=== PATIENT | male | born 1960 | race Caucasian/White ===

== ENCOUNTER 2021-04-29 13:58 | Emergency (ER) | payer MEDICAID ==
[~2021-04-29] VITALS: Ht 180.3 cm; Wt 97.0 kg
[2021-04-29 15:00] VITALS: BP 139/89
[2021-04-29] MEDS ORDERED: KETOROLAC 30MG/ML VIAL IM ONE (15:00)
[2021-04-29 15:45] LABS: CHLORIDE 103 mEq/L (98-107)
[2021-04-29 16:04] LABS: EOSINOPHILS % 2.9 % (0.0-5.0); HEMATOCRIT. 40.7 % (42.0-52.0); HEMOGLOBIN. 14.7 g/dL (14.0-18.0); LYMPHOCYTES % 25.2 % (20.0-50.0); MEAN CORPUSCULAR HEMOGLOBIN 30.7 pg (28.0-32.0); MEAN CORPUSCULAR VOLUME 85.3 fL (80.0-94.0); MEAN PLATELET VOLUME 10.1 fl (7.4-10.4); MONOCYTES % 6.4 % (2.0-8.0); NEUTROPHILS % 64.5 % (40.0-76.0); PLATELET 252 x1000/uL (130-400); RED BLOOD CELL COUNT 4.77 mill/uL (4.7-6.1); RED CELL DISTRIBUTION WIDTH 12.9 % (11.6-14.6)
[2021-04-29] MEDS ORDERED: ACET-2708 MT (17:02)
[2021-04-29 18:43] LABS: CLARITY URINE CLEAR (CLEAR); COLOR URINE YELLOW (YELLOW); KETONES URINE TRACE (NEGATIVE); LEUKOCYTE ESTERASE URINE NEGATIVE (NEGATIVE); NITRITE URINE NEGATIVE (NEGATIVE); OCCULT BLOOD URINE NEGATIVE (NEGATIVE); PH URINE 5.5 (4.5-8.0); PROTEIN URINE NEGATIVE (NEGATIVE); SPECIFIC GRAVITY URINE 1.019 (1.005-1.030); UROBILINOGEN URINE 0.2 E.U./dL (0.2-1.0)
== END 2021-04-29 17:23 | disposition home or self-care (01) ==
LOC: ER 15:00
DX: M54.89 Other dorsalgia (principal); K57.90 Diverticulosis of intestine, part unspecified, without perforation or abscess without bleeding; K45.8 Other specified abdominal hernia without obstruction or gangrene; K76.0 Fatty (change of) liver, not elsewhere classified; I10 Essential (primary) hypertension; E11.9 Type 2 diabetes mellitus without complications
CPT/HCPCS: 36415; 74176; 80053; 81003; 82962; 83690; 85025; 96372; 99284; J1885

== ENCOUNTER 2021-08-16 05:01 | Emergency (ER) | payer MEDICAID, OTHER ==
[~2021-08-16] VITALS: Ht 182.9 cm; Wt 80.0 kg
[~2021-08-16 05:01] MED LIST: ACET-2708 MT
[2021-08-16 06:06] LABS: BASOPHILS % 0.9 % (0.0-2.0); CHLORIDE 102 mEq/L (98-107); EOSINOPHILS % 2.8 % (0.0-5.0); HEMATOCRIT. 42.1 % (42.0-52.0); HEMOGLOBIN. 14.3 g/dL (14.0-18.0); LYMPHOCYTES % 28.1 % (20.0-50.0); MEAN CORPUSCULAR HEMOGLOBIN 28.9 pg (28.0-32.0); MEAN CORPUSCULAR VOLUME 85.1 fL (80.0-94.0); MEAN PLATELET VOLUME 10.5 fl (7.4-10.4); MONOCYTES % 5.8 % (2.0-8.0); NEUTROPHILS % 62.4 % (40.0-76.0); PLATELET 232 x1000/uL (130-400); RED BLOOD CELL COUNT 4.95 mill/uL (4.7-6.1)
[2021-08-16 06:45] VITALS: BP 140/82
== END 2021-08-16 06:55 | disposition home or self-care (01) ==
LOC: ER 05:01
DX: R06.4 Hyperventilation (principal); E11.9 Type 2 diabetes mellitus without complications; I10 Essential (primary) hypertension
CPT/HCPCS: 36415; 80053; 85025; 99283